=== PATIENT | male | born 1930 | race Caucasian/White ===

== ENCOUNTER 2019-05-28 08:56 | Observation (INO) ==
--- NOTE | 2019-05-28 08:58 | Emergency Department Note ---
ED Disposition Clinical Impression: Urinary tract infection, Generalized weakness, Hypotension Disposition: Admitted as Observation Condition on Discharge: Fair Time of Disposition: 12:07 - Critical Care Critical Care Time: No Attestation: On , the high probability of a clinically significant, sudden or life threatening deterioration of the following system(s) required my full and direct attention, intervention and personal management. The time I documented below is in addition to time spent performing reported procedures but includes the following listed in this critical care notation. Medical Decision Making - Medical Records Medical records reviewed: Yes: I reviewed the patient's medical records. - Omar Inquiry Pt receiving controlled substance: No Omra was queried for this patient: No Vital Signs: 05/28/19 08:38 05/28/19 10:16 05/28/19 10:59 Temperature 98.8 F Temperature Source Oral Pulse Rate [Radial] 59 L 53 L 48 L Respiratory Rate 20 Blood Pressure [Right Arm] 81/45 L 109/59 L 107/54 L Blood Pressure Mean [Right Arm] 57 75 71 Blood Pressure Source [Right Arm] Automatic Cuff Automatic Cuff Automatic Cuff Blood Pressure Position [Right Arm] Supine Sitting Supine 02 Sat by Pulse Oximetry 92 L 95 95 Oxygen Delivery Method Room Air Room Air Room Air - Lab Data Lab results reviewed: Yes: I reviewed the patient's lab results. Lab Results 05/28/19 08:30: WBC 13.8 H, RBC 4.51 L, Hgb 12.8 L, Hct 42.0, MCV 93.0, MCH 28.3, MCHC 30.5 L, RDW 14.2, Plt Count 223, MPV 8.5, Neut % (Auto) 84.6 H, Lymph % (Auto) 10.1, [place] % (Auto) 4.6, Eos % (Auto) 0.3, Baso % (Auto) 0.3, Neut # (Auto) 11.7 H, Lymph # (Auto) 1.4, [place] # (Auto) 0.6, Eos # (Auto) 0.1, Baso # (Auto) 0.0 05/28/19 08:30: Sodium 145, Potassium 4.2, Chloride 110 H, Carbon Dioxide 26, A nion Gap 13.2, BUN 24 H, Creatinine 1.62 H, Estimated Creat Clear 37, Estimated GFR 41 L, Est GFR ( Amer) 49 L, Glucose 110 H, Calcium 8.3 L, Total Bilirubin 1.0, AST 19, ALT 21, Alkaline Phosphatase 101, C-Reactive Protein 3.6 H, Total Protein 6.4, Albumin 2.8 L, Globulin 3.6 H, Albumin/Globulin Ratio 0.8 L 05/28/19 08:30: Lactate 2.5 H 05/28/19 08:30: PT 17.1 H, INR 1.69 H 05/28/19 10:10: Urine Color Yellow, Urine Appearance Clear, Urine pH 6.0, Ur Specific [place] 1.015, Urine Protein Trace, Urine Glucose (UA) Negative, Urine Ketones Negative, Urine Blood 1+, Urine Nitrate Negative, Urine Bilirubin Negative, Urine Urobilinogen 1.0, Ur Leukocyte Esterase 3+ A, Urine RBC 5-10, Urine WBC 20-50, Ur Squamous Epith Cells Occasional, Urine Bacteria 2+ Result diagrams: 05/28/19 08:30 05/28/19 08:30 Orders (Tests/Meds): ED MEDICATIONS Generic Name Dose Route Start Last Admin Trade Name Freq PRN Reason Stop Dose Admin Ceftriaxone Sodium 2 gm/ 100 mls @ 200 mls/hr 05/28/19 11:00 05/28/19 11:12 Sodium Chloride IV 06/11/19 10:59 200 mls/hr Q24H RIAZ Administration Protocol Discontinued Medications Generic Name Dose Route Start Last Admin Trade Name Freq PRN Reason Stop Dose Admin Sodium Chloride 1,000 mls @ 999 mls/hr 05/28/19 09:30 05/28/19 09:35 Sod Chlor 0.9% 1000ml Bag IV 05/28/19 10:30 999 mls/hr .Q1H1M RIAZ Administration ORDERS Category Date Time Status Blood Culture Stat Micro 05/28/19 08:30 Received Urine Culture Stat Micro 05/28/19 10:10 Received - Physician Consults Physician Consulted: isaiah Time: 12:06 Reason -: Admission Weakness HPI - General Chief complaint: Weakness Stated complaint: weakness Time Seen by Provider: 05/28/19 08:55 Mode of Arrival: EMS Source of Information: EMS Limitations: Physical Limitations Description of Symptoms (Recalled from ER Triage Doc. by RN): Nurse at [place] states that the patient has a change in his level of conciousness, low grade temp, and generalized weakness. - History of Present Illness HPI Narrative: decreased level of consciousness, low grade fever... less verbal and activity. - Related Data Home Medications Medication Instructions Recorded Confirmed Allopurinol [Allopurinol 100mg 100 mg PO DAILY 09/18/17 11/18/18 tablet] Donepezil HCl [Aricept] 10 mg PO HS 09/18/17 11/18/18 Memantine HCl [Memantine 10mg 10 mg PO BID 09/18/17 11/18/18 Tablet] Acetaminophen [Tylenol 500mg 500 mg PO Q4HP PRN 09/19/17 11/18/18 tablet] Cholecalciferol (Vitamin D3) 2,000 units PO DAILY 09/19/17 11/18/18 [Vitamin D3 1,000 Unit Tab] Cyanocobalamin (Vitamin B-12) 1,000 mcg PO DAILY 09/19/17 11/18/18 [B-12] Lutein 10 mg PO DAILY 09/19/17 11/18/18 Mag Carb/Aluminum Hydrox/Algin 30 ml PO Q6HP PRN 09/19/17 11/18/18 [Gaviscon Extra Strength Liquid] Sennosides/Docusate Sodium 8.6 - 50 mg PO DAILY 09/19/17 11/18/18 [Senna-S Tablet] Doxazosin Mesylate [Doxazosin 1mg 1 mg PO . 11/12/18 11/18/18 Tab] Ipratropium/Albuterol Sulfate 3 ml IH . 11/12/18 11/18/18 [Duoneb 3mL neb] Potassium Chloride [Pot Chlor 10 20 meq PO DAILY 11/12/18 11/18/18 mEq Tab] Sucralfate [Sucralfate 1gm 1 gm PO BID 11/12/18 11/18/18 Tab] Warfarin Sodium 6 mg PO DAILY 11/12/18 11/18/18 Allergies Allergy/AdvReac Type Severity Reaction Status Date / Time aspirin Allergy Severe SOA Verified 11/18/18 13:53 [facility] History - Hepatitis A Screen Drug use history?: No High risk sexual behaviors?: No History of sexually transmitted infection?: No Currently employed?: No Childcare worker?: No Do you have indoor plumbing?: Yes Do you have electricity?: Yes Attestation statement:: This patient has been screened for Hepatitis A risk factors. I have reviewed the patient's past medical history: Yes Medical History: Reports:: Coronary Artery Disease, Deep Vein Thrombosis, Dementia, Myocardial Infarction, Pulmonary Embolism Denies:: Cancer, Diabetes Mellitus Type 1, Diabetes Mellitus Type 2, MRSA Other Medical History: Reports: Cataracts Other Surgeries: Yes: No Previous Surgery, Other Amputation: No Fractures: No Comment: cholecystectomy, breast nodule removed, C-scope x 2, Right hand pinched nerve - Social History Educational Level: Completed High School Smoking Status: Former smoker Tobacco Type: smokeless tobacco Alcohol Intake: never Occupational Status: retired Housing: senior living Household Members: other Family Hx:: Cancer, Diabetes, Heart Attack, Hypertension, Stroke ROS Obtained: Yes All systems reviewed & no additional complaints - Constitutional Constitutional: Reports chills, Reports fever(s) - Cardiovascular Cardiovascular: Denies dyspnea - Respiratory Respiratory: No chest congestion, No cough, No dyspnea - Gastrointestinal Gastrointestingal: Denies: abdominal pain - Genitourinary Female Genitourinary: Denies hematuria - Musculoskeletal Musculoskeletal: Denies joint stiffness, Denies joint swelling, Reports muscle weakness - Integumentary/Breasts Skin/Breast: Denies rash, Denies skin pain - Neurologic Neurologic: Denies seizure-like activity, Denies syncope, Reports weakness - Hematologic/Lymphatic Henatologic/Lymphatic: Denies easy bleeding Physical Exam - General General appearance: alert, in no apparent distress, other (non-verbal, no apparent pain) - Head Head exam: atraumatic, normocephalic, normal inspection - Eye Eye exam: Present: normal appearance, PERRL, EOMI - ENT ENT exam: Present: normal exam, normal oropharynx, mucous membranes moist, TM's normal bilaterally, normal external ear exam - Neck Neck exam: Absent: meningismus - Respiratory Respiratory exam: Present: normal lung sounds bilaterally. Absent: respiratory distress - Cardiovascular Cardiovascular exam: Present: regular rate, normal rhythm. Absent: JVD - Abdominal Exam Abdominal exam: Present: soft. Absent: distention, tenderness, guarding - Extremities Exam Extremities exam: Present: other (contracted somewhat) - Neurological Exam Neurological exam: Present: alert, oriented X3 - Skin Skin exam: Present: warm, dry, intact, normal color
[2019-05-28 09:23] LABS: Basophils % 0.3 % (0.1-2.0); Eosinophils # 0.1 K/mm3 (0.0-0.4); Eosinophils % 0.3 % (0.1-12.0); Hemoglobin 12.8 g/dL (14.1-18.0); Lymphocytes # 1.4 K/mm3 (0.7-4.5); Lymphocytes % 10.1 % (10-50); Mean Corpuscular HGB Conc 30.5 g/dL (31.8-35.4); Mean Platelet Volume 8.5 fl (7.4-10.4); Monocytes # 0.6 K/mm3 (0.1-1.0); Monocytes % 4.6 % (1.7-9.3); Neutrophils # 11.7 K/mm3 (1.8-7.8); Neutrophils % 84.6 % (37.0-80.0); Platelet Count 223 K/mm3 (142-424); Red Blood Count 4.51 M/mm3 (4.60-6.20); Red Cell Distribution Width 14.2 % (11.5-17.5); White Blood Count 13.8 K/mm3 (4.8-10.8)
[2019-05-28 09:26] LABS: INR 1.69 (0.9-1.1); Prothrombin Time 17.1 seconds (9.4-11.8)
[2019-05-28 10:15] LABS: Albumin Level 2.8 gm/dL (3.4-5.0); Albumin/Globulin Ratio 0.8 (1.1-1.8); Anion Gap 13.2 mEq/L (5-15); C-Reactive Protein 3.6 mg/dL (0.0-0.9); Calcium 8.3 mg/dL (8.5-10.1); Globulin 3.6 gm/dl (1.3-3.2); Total Protein,Serum 6.4 gm/dL (6.4-8.2)
[2019-05-28 10:16] LABS: Microscopic, Urine URINE MICROSCOPIC (MICROSCOPIC)
[2019-05-28 10:19] LABS: Appearance,Urine CLEAR (Clear); Blood, Urine 1+ (Negative); Color,Urine YELLOW (Yellow); Glucose,Urine (UA) Negative (Negative); Ketones,Urine Negative (Negative); Leukocyte Esterase,Urine 3+ (Negative); Protein,Urine TRACE (Negative); Specific Gravity, Urine 1.015 (1.005-1.030)
[2019-05-28 10:27] LABS: Bilirubin,Urine Negative (Negative)
[2019-05-28 10:40] LABS: Bacteria,Urine 2+ /lpf; Squamous Epithelial Cell,Urine Occasional #/hpf (0-5); WBC,Urine 20-50 #/hpf (0-3)
--- NOTE | 2019-05-28 12:36 | History & Physical Report ---
*Admission Date: 05/28/19 *Chief complaint: AMS, weakness *History of present illness: Mr. Yusuf is an 88-year-old male with a history of hypertension, dementia, history of PE and DVT, BPH, and coronary artery disease who began feeling poorly this morning according to his nurse Brick Halfway. She states he was lethargic and confused and was running a low-grade fever. His condition did not improve, therefore he was transported to the emergency room for evaluation. Once in the ER he was found to have a urinary tract infection. He will be admitted for IV antibiotics. [facility] History I have reviewed the patient's past medical history: Yes Medical History: Reports:: BPH, Coronary Artery Disease, Deep Vein Thrombosis, Dementia, Hypertension, Myocardial Infarction, Pulmonary Embolism Denies:: Cancer, Diabetes Mellitus Type 1, Diabetes Mellitus Type 2, MRSA *Have you ever received a pneumonia vaccine?: Yes *Have you received a flu vaccine this season?: Yes Other Medical History: Reports: Cataracts Laterality Cases: Bilateral: Cataract Other Surgeries: Yes: Cholecystectomy, Colonoscopy, Other (Breast nodule removed) Amputation: No Fractures: No - *Social History Educational Level: Completed High School Smoking Status: Former smoker Tobacco Type: smokeless tobacco Alcohol Intake: never *Occupational Status:: retired Housing: detention Household Members: other *Travel in the last 8 weeks: None Family Hx:: Cancer, Diabetes, Heart Attack, Hypertension, Stroke Review of Systems - Review of Systems Review of systems:: unable to obtain (Patient is very lethargic) - *Neurologic Reports weakness, Denies seizure-like activity, Denies fainting Meds Home Medications Medication Instructions Recorded Confirmed Type Allopurinol [Allopurinol 100mg 100 mg PO DAILY 09/18/17 05/28/19 History tablet] Donepezil HCl [Aricept] 10 mg PO HS 09/18/17 05/28/19 History Memantine HCl [Memantine 10mg 10 mg PO BID 09/18/17 05/28/19 History Tablet] Acetaminophen [Tylenol 500mg 500 mg PO Q4HP PRN 09/19/17 05/28/19 History tablet] Cholecalciferol (Vitamin D3) 2,000 units PO DAILY 09/19/17 05/28/19 History [Vitamin D3 1,000 Unit Tab] Sennosides/Docusate Sodium 8.6 - 50 mg PO DAILY 09/19/17 05/28/19 History [Senna-S Tablet] Doxazosin Mesylate [Doxazosin 1mg 1 mg PO . 11/12/18 05/28/19 History Tab] Potassium Chloride [Pot Chlor 10 20 meq PO DAILY 11/12/18 05/28/19 History mEq Tab] Sucralfate [Sucralfate 1gm 1 gm PO BID 11/12/18 05/28/19 History Tab] Warfarin Sodium 6 mg PO DAILY 11/12/18 05/28/19 History Allergies Allergy/AdvReac Type Severity Reaction Status Date / Time aspirin Allergy Severe SOA Verified 11/18/18 13:53 Exam Vital signs and Labs for Last 24 Hours: Temp Pulse Resp BP Pulse Ox 98.8 F 48 L 20 107/54 L 95 05/28/19 08:38 05/28/19 10:59 05/28/19 08:38 05/28/19 10:59 05/28/19 10:59 Laboratory Results - last 24 hr 05/28/19 08:30: WBC 13.8 H, RBC 4.51 L, Hgb 12.8 L, Hct 42.0, MCV 93.0, MCH 28.3, MCHC 30.5 L, RDW 14.2, Plt Count 223, MPV 8.5, Neut % (Auto) 84.6 H, Lymph % (Auto) 10.1, [place] % (Auto) 4.6, Eos % (Auto) 0.3, Baso % (Auto) 0.3, Neut # (Auto) 11.7 H, Lymph # (Auto) 1.4, [place] # (Auto) 0.6, Eos # (Auto) 0.1, Baso # (Auto) 0.0 05/28/19 08:30: Sodium 145, Potassium 4.2, Chloride 110 H, Carbon Dioxide 26, Anion Gap 13.2, BUN 24 H, Creatinine 1.62 H, Estimated Creat Clear 37, Estimated GFR 41 L, Est GFR ( Amer) 49 L, Glucose 110 H, Calcium 8.3 L, Total Bilirubin 1.0, AST 19, ALT 21, Alkaline Phosphatase 101, C-Reactive Protein 3.6 H, Total Protein 6.4, Albumin 2.8 L, Globulin 3.6 H, Albumin/Globulin Ratio 0.8 L 05/28/19 08:30: Lactate 2.5 H 05/28/19 08:30: PT 17.1 H, INR 1.69 H 05/28/19 10:10: Urine Color Yellow, Urine Appearance Clear, Urine pH 6.0, Ur Specific [place] 1.015, Urine Protein Trace, Urine Glucose (UA) Negative, Urine Ketones Negative, Urine Blood 1+, Urine Nitrate Negative, Urine Bilirubin Negative, Urine Urobilinogen 1.0, Ur Leukocyte Esterase 3+ A, Urine RBC 5-10, Urine WBC 20-50, Ur Squamous Epith Cells Occasional, Urine Bacteria 2+ I & O for Last 24 hours: Intake & Output 05/26/19 05/27/19 05/28/19 05/29/19 11:59 11:59 11:59 11:59 Weight 178 lb - Constitutional Comments: Lethargic, can answer some questions but is very confused and falls asleep - *Routine HEENT Exam Head: Present: normocephalic Eye: Present: EOMI, PERRL ENT: Present: mucous membranes dry - *Routine Neck Exam Present: supple. Absent: lymphadenopathy - *Routine Respiratory Exam Present: CTA bilaterally - *Routine Cardiovascular Exam Present: RRR - *Routine Abdominal Exam Present: soft, normoactive bowel sounds, tenderness (lower abdomen) - *Routine Extremities Exam Absent: cyanosis, clubbing, edema - *Routine Skin Exam Present: warm. Absent: rash - *Routine Neurological Exam Present: altered mental status H&P: Result - Impressions CXR - Borderline cardiomegaly, minimal bilateral basilar atelectasis Head CT Stable findings of moderate cortical and mild cerebellar atrophy, mild and likely chronic inflammatory changes of the ethmoid sinuses Assessment and Plan (1) Urinary tract infection Current visit: Yes Status: Acute Category: Medical Code(s): N39.0 - Urinary tract infection, site not specified (2) Hypotension Current visit: Yes Status: Acute Category: Medical Code(s): I95.9 - Hypotension, unspecified (3) Weakness Current visit: Yes Status: Acute Category: Medical Code(s): R53.1 - Weakness (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 Current visit: No Status: Chronic Category: Medical Code(s): Z79.01 - FPC (current) use of anticoagulants (5) Parkinson disease Current visit: No Status: Chronic Category: Medical Code(s): G20 - Parkinson's disease (6) Subtherapeutic anticoagulation Current visit: No Status: Chronic Category: Medical Code(s): Z51.81 - Encounter for therapeutic drug level monitoring; Z79.01 - FPC (current) use of anticoagulants (7) BPH (benign prostatic hyperplasia) Current visit: No Status: Chronic Category: Medical Code(s): N40.0 - Benign prostatic hyperplasia without lower urinary tract symptoms (8) CAD (coronary artery disease) Current visit: No Status: Chronic Category: Medical Code(s): I25.10 - Atherosclerotic heart disease of [place] coronary artery without angina pectoris (9) Dementia Current visit: No Status: Chronic Category: Medical Code(s): F03.90 - Unspecified dementia without behavioral disturbance (10) History of DVT (deep vein thrombosis) Current visit: No Status: Chronic Category: Medical Code(s): Z86.718 - Personal history of other venous thrombosis and embolism (11) History of pulmonary embolism Current visit: No Status: Chronic Category: Medical Code(s): Z86.711 - Personal history of pulmonary embolism (12) Hypertension Current visit: No Status: Chronic Category: Medical Code(s): I10 - Essential (primary) hypertension - Assessment and plan all Dx Assessment and Plan for all problems:: Patient is still in the emergency room. He will be admitted and started on IV antibiotics as well as IV fluids.
--- NOTE | 2019-05-28 13:14 | Pharmacy Consult Notes ---
[facility] Pharmacy VTE Monitoring - Patient Demographics Admission date: 05/28/19 Report Date: 05/28/19 Time: 13:14 Allergies/Adverse Reactions: Patient Allergies aspirin Allergy (Severe, Verified 11/18/18 13:53) SOA Height: 1.73 m Weight: 80.739 kg Patient Problems: Current Active Problems Urinary tract infection (Acute) Weakness (Acute) Hypotension (Acute) - VTE Risk Labs: VTE Related Lab Results Hgb 12.8 g/dL (14.1-18.0) L 05/28/19 08:30 Hct 42.0 % (42.0-52.0) 05/28/19 08:30 Plt Count 223 K/mm3 (142-424) 05/28/19 08:30 PT 17.1 seconds (9.4-11.8) H 05/28/19 08:30 INR 1.69 (0.9-1.1) H 05/28/19 08:30 BUN 24 mg/dL (7-18) H 05/28/19 08:30 Creatinine 1.62 mg/dL (0.70-1.30) H 05/28/19 08:30 Estimated Creat Clear 37 mL/min (50-200) 05/28/19 08:30 - Prophylaxis VTE Prophylaxis Ordered?: Yes Types of VTE Prophylaxis: TEDS Knee High Location of Applied Device: Bilateral Lower Extremeties - VTE Diagnosis Confirmed Treatment or plan recommended: Continue Current Treatment
[2019-05-29 06:19] LABS: Anion Gap 11.7 mEq/L (5-15); Calcium 8.1 mg/dL (8.5-10.1)
[2019-05-29 06:27] LABS: Basophils % 0.4 % (0.1-2.0); Eosinophils # 0.6 K/mm3 (0.0-0.4); Eosinophils % 8.1 % (0.1-12.0); Hematocrit 37.2 % (42.0-52.0); Lymphocytes # 1.1 K/mm3 (0.7-4.5); Lymphocytes % 16.1 % (10-50); Mean Corpuscular HGB Conc 30.7 g/dL (31.8-35.4); Mean Corpuscular Volume 95.2 fl (80-94); Mean Platelet Volume 8.3 fl (7.4-10.4); Monocytes # 0.3 K/mm3 (0.1-1.0); Monocytes % 4.6 % (1.7-9.3); Neutrophils % 70.8 % (37.0-80.0); Platelet Count 179 K/mm3 (142-424); Red Blood Count 3.91 M/mm3 (4.60-6.20); Red Cell Distribution Width 14.3 % (11.5-17.5); White Blood Count 7.1 K/mm3 (4.8-10.8)
[2019-05-29 07:06] LABS: Hemoglobin 11.3 g/dL (14.1-18.0)
--- NOTE | 2019-05-29 08:58 | Progress Note ---
Internal Medicine - PN: Subj *Date: 05/29/19 *Time: 11:00 Interval history: Patient doing better compared to yesterday. Exam Vital signs and Labs for Last 24 Hours: Temp Pulse Resp BP Pulse Ox 98.0 F 60 17 128/70 93 L 05/29/19 08:00 05/29/19 08:00 05/29/19 08:00 05/29/19 08:00 05/29/19 08:00 Laboratory Results - last 24 hr 05/28/19 08:30: WBC 13.8 H, RBC 4.51 L, Hgb 12.8 L, Hct 42.0, MCV 93.0, MCH 28.3, MCHC 30.5 L, RDW 14.2, Plt Count 223, MPV 8.5, Neut % (Auto) 84.6 H, Lymph % (Auto) 10.1, [place] % (Auto) 4.6, Eos % (Auto) 0.3, Baso % (Auto) 0.3, Neut # (Auto) 11.7 H, Lymph # (Auto) 1.4, [place] # (Auto) 0.6, Eos # (Auto) 0.1, Baso # (Auto) 0.0 05/28/19 08:30: Sodium 145, Potassium 4.2, Chloride 110 H, Carbon Dioxide 26, Anion Gap 13.2, BUN 24 H, Creatinine 1.62 H, Estimated Creat Clear 37, Estimated GFR 41 L, Est GFR ( Amer) 49 L, Glucose 110 H, Calcium 8.3 L, Total Bilirubin 1.0, AST 19, ALT 21, Alkaline Phosphatase 101, C-Reactive Protein 3.6 H, Total Protein 6.4, Albumin 2.8 L, Globulin 3.6 H, Albumin/Globulin Ratio 0.8 L 05/28/19 08:30: Lactate 2.5 H 05/28/19 08:30: PT 17.1 H, INR 1.69 H 05/28/19 10:10: Urine Color Yellow, Urine Appearance Clear, Urine pH 6.0, Ur Specific [place] 1.015, Urine Protein Trace, Urine Glucose (UA) Negative, Urine Ketones Negative, Urine Blood 1+, Urine Nitrate Negative, Urine Bilirubin Negati ve, Urine Urobilinogen 1.0, Ur Leukocyte Esterase 3+ A, Urine RBC 5-10, Urine WBC 20-50, Ur Squamous Epith Cells Occasional, Urine Bacteria 2+ 05/28/19 13:28: Lactate 1.8 05/28/19 17:32: POC Glucose 83 05/28/19 22:13: POC Glucose 85 05/29/19 06:03: POC Glucose 73 05/29/19 06:04: WBC 7.1 D, RBC 3.91 L, Hgb 11.3 L D, Hct 37.2 L, MCV 95.2 H, MCH 29.2, MCHC 30.7 L, RDW 14.3, Plt Count 179, MPV 8.3, Neut % (Auto) 70.8, Lymph % (Auto) 16.1, [place] % (Auto) 4.6, Eos % (Auto) 8.1, Baso % (Auto) 0.4, Neut # (Auto) 5.0, Lymph # (Auto) 1.1, [place] # (Auto) 0.3, Eos # (Auto) 0.6 H, Baso # (Auto) 0.0 05/29/19 06:04: Sodium 145, Potassium 3.7, Chloride 111 H, Carbon Dioxide 26, Anion Gap 11.7, BUN 20 H, Creatinine 1.10 D, Estimated Creat Clear 53, Estimated GFR 63, Est GFR ( Amer) 77 D, Glucose 78 D, Calcium 8.1 L I & O for Last 24 hours: Intake & Output 05/26/19 05/27/19 05/28/19 05/29/19 11:59 11:59 11:59 11:59 Intake Total 2190 / 2190 Output Total 700 / 700 Balance 1490 / 1490 Weight 178 lb 171 lb 3.002 oz Microbiology Reports for the Last 24 Hours: Microbiology 05/28/19 10:10 Urine,Clean Catch Urine Culture - Preliminary Gram Negative Rods - *Routine HEENT Exam Head: Present: normocephalic Eye: Present: EOMI, PERRL ENT: Present: mucous membranes moist - *Routine Neck Exam Present: supple. Absent: lymphadenopathy - *Routine Respiratory Exam Present: CTA bilaterally - *Routine Cardiovascular Exam Present: RRR - *Routine Abdominal Exam Present: soft, normoactive bowel sounds. Absent: tenderness - *Routine Extremities Exam Absent: cyanosis, clubbing, edema - *Routine Skin Exam Present: warm. 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 (5) Parkinson disease Current visit: No Status: Chronic Category: Medical Code(s): G20 - Parkinson's disease (6) Subtherapeutic anticoagulation Current visit: No Status: Chronic Category: Medical Code(s): Z51.81 - Encounter for therapeutic drug level monitoring; Z79.01 - USP (current) use of anticoagulants (7) BPH (benign prostatic hyperplasia) Current visit: No Status: Chronic Category: Medical Code(s): N40.0 - Benign prostatic hyperplasia without lower urinary tract symptoms (8) CAD (coronary artery disease) Current visit: No Status: Chronic Category: Medical Code(s): I25.10 - Atherosclerotic heart disease of [place] coronary artery without angina pectoris (9) Dementia Current visit: No Status: Chronic Category: Medical Code(s): F03.90 - Unspecified dementia without behavioral disturbance (10) History of DVT (deep vein thrombosis) Current visit: No Status: Chronic Category: Medical Code(s): Z86.718 - Personal history of other venous thrombosis and embolism (11) History of pulmonary embolism Current visit: No Status: Chronic Category: Medical Code(s): Z86.711 - Personal history of pulmonary embolism (12) Hypertension Current visit: No Status: Chronic Category: Medical Code(s): I10 - Essential (primary) hypertension - Assessment and plan all Dx Assessment and Plan for all problems:: will discharge him back to custodial with IM rocephin 1g QD. Will await for cultures and do p.o. treatment is necessary at that time
--- NOTE | 2019-05-29 11:44 | Discharge Summary ---
General - General Admission date:: 05/28/19 Discharge date: 05/29/19 HPI HPI: Mr. Yusuf is an 88-year-old male with a history of hypertension, dementia, history of PE and DVT, BPH, and coronary artery disease who began feeling poorly this morning according to his nurse Warwick Halfway. She states he was lethargic and confused and was running a low-grade fever. His condition did not improve, therefore he was transported to the emergency room for evaluation. Once in the ER he was found to have a urinary tract infection. He will be admitted for IV antibiotics. Hospital Course Hospital Course: Patient was admitted to our hospital and was started on IV Rocephin for his UTI. His urine cultures grew gram-negative rods so far pending sensitivity. Upon the day of discharge being medically stable, patient was sent back to the senior care, [facility], with IM Rocephin pending cultures sensitivity. Follow cultures and change to p.o. when and if medically necessary at that point. Objective Vital signs: Temp Pulse Resp BP Pulse Ox 98.0 F 60 17 128/70 93 L 05/29/19 08:00 05/29/19 08:00 05/29/19 08:00 05/29/19 08:00 05/29/19 08:00 - *Routine HEENT Exam Head: Present: normocephalic Eye: Present: EOMI, PERRL ENT: Present: mucous membranes moist - *Routine Neck Exam Present: supple, full ROM - Routine Chest/Breast/Axilla Exam Chest wall: Absent: tenderness - *Routine Respiratory Exam Present: CTA bilaterally. Absent: accessory muscle use - *Routine Cardiovascular Exam Present: RRR - *Routine Abdominal Exam Present: soft, normoactive bowel sounds. Absent: tenderness - *Routine Extremities Exam Absent: cyanosis, clubbing, edema - *Routine Skin Exam Present: intact - *Routine Neurological Exam Present: alert - Detailed Eye Exam Eyelids: Left normal inspection Results Labs on day of discharge: Labs from last 24 hours 05/29/19 05/29/19 05/29/19 06:04 06:04 06:03 WBC 7.1 D RBC 3.91 L Hgb 11.3 L D Hct 37.2 L MCV 95.2 H MCH 29.2 MCHC 30.7 L RDW 14.3 Plt Count 179 MPV 8.3 Neut % (Auto) 70.8 Lymph % (Auto) 16.1 [place] % (Auto) 4.6 Eos % (Auto) 8.1 Baso % (Auto) 0.4 Neut # (Auto) 5.0 Lymph # (Auto) 1.1 [place] # (Auto) 0.3 Eos # (Auto) 0.6 H Baso # (Auto) 0.0 Sodium 145 Potassium 3.7 Chloride 111 H Carbon Dioxide 26 Anion Gap 11.7 BUN 20 H Creatinine 1.10 D Estimated Creat Clear 53 Estimated GFR 63 Est GFR ( Amer) 77 D Glucose 78 D POC Glucose 73 Lactate Calcium 8.1 L Urine Color Urine Appearance Urine pH Ur Specific [place] Urine Protein Urine Glucose (UA) Urine Ketones Urine Blood Urine Nitrate Urine Bilirubin Urine Urobilinogen Ur Leukocyte Esterase Urine RBC Urine WBC Ur Squamous Epith Cells Urine Bacteria 05/28/19 05/28/19 05/28/19 22:13 17:32 13:28 WBC RBC Hgb Hct MCV MCH MCHC RDW Plt Count MPV Neut % (Auto) Lymph % (Auto) [place] % (Auto) Eos % (Auto) Baso % (Auto) Neut # (Auto) Lymph # (Auto) [place] # (Auto) Eos # (Auto) Baso # (Auto) Sodium Potassium Chloride Carbon Dioxide Anion Gap BUN Creatinine Estimated Creat Clear Estimated GFR Est GFR ( Amer) Glucose POC Glucose 85 83 Lactate 1.8 Calcium Urine Color Urine Appearance Urine pH Ur Specific [place] Urine Protein Urine Glucose (UA) Urine Ketones Urine Blood Urine Nitrate Urine Bilirubin Urine Urobilinogen Ur Leukocyte Esterase Urine RBC Urine WBC Ur Squamous Epith Cells Urine Bacteria 05/28/19 10:10 WBC RBC Hgb Hct MCV MCH MCHC RDW Plt Count MPV Neut % (Auto) Lymph % (Auto) [place] % (Auto) Eos % (Auto) Baso % (Auto) Neut # (Auto) Lymph # (Auto) [place] # (Auto) Eos # (Auto) Baso # (Auto) Sodium Potassium Chloride Carbon Dioxide Anion Gap BUN Creatinine Estimated Creat Clear Estimated GFR Est GFR ( Amer) Glucose POC Glucose Lactate Calcium Urine Color Yellow Urine Appearance Clear Urine pH 6.0 Ur Specific [place] 1.015 Urine Protein Trace Urine Glucose (UA) Negative Urine Ketones Negative Urine Blood 1+ Urine Nitrate Negative Urine Bilirubin Negative Urine Urobilinogen 1.0 Ur Leukocyte Esterase 3+ A Urine RBC 5-10 Urine WBC 20-50 Ur Squamous Epith Cells Occasional Urine Bacteria 2+ Preliminary micro results at discharge 05/28/19 10:10 Urine Culture - Preliminary Urine,Clean Catch Gram Negative Rods DS: Diagnosis - Discharge Diagnosis (1) Urinary tract infection Status: Acute (2) Hypotension Status: Acute (3) Weakness Status: Acute (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 (5) Parkinson disease Status: Chronic (6) Subtherapeutic anticoagulation Status: Chronic (7) BPH (benign prostatic hyperplasia) Status: Chronic (8) CAD (coronary artery disease) Status: Chronic (9) Dementia Status: Chronic (10) History of DVT (deep vein thrombosis) Status: Chronic (11) History of pulmonary embolism Status: Chronic (12) Hypertension Status: Chronic Discharge Plan - Patient Discharge Instructions ACTIVITY: Continue current activity DIET: continue same diet Patient Instructions: DI for Urinary Tract Infection (UTI) - Follow up Plan Follow up with: Tiffany Marcano MD [Staff Physician] - (will follow at facility) Disposition: [facility] Home Medications: Home Medications Medication Instructions Recorded Confirmed Type Allopurinol [Allopurinol 100mg 100 mg PO DAILY 09/18/17 05/28/19 History tablet] Memantine HCl [Memantine 10mg 10 mg PO BID 09/18/17 05/28/19 History Tablet] Acetaminophen [Tylenol 500mg 500 mg PO Q4HP PRN 09/19/17 05/28/19 History tablet] Cholecalciferol (Vitamin D3) 2,000 units PO DAILY 09/19/17 05/28/19 History [Vitamin D3 1,000 Unit Tab] Doxazosin Mesylate [Doxazosin 1mg 1 mg PO HS 11/12/18 05/28/19 History Tab] Potassium Chloride [Pot Chlor 10 20 meq PO DAILY 11/12/18 05/28/19 History mEq Tab] Sucralfate [Sucralfate 1gm 1 gm PO ACHS 11/12/18 05/28/19 History Tab] Warfarin Sodium 6 mg PO SUMOWETHFRSA 11/12/18 05/28/19 History Bisacodyl [Dulcolax 10mg Supp] 10 mg RC DAILYP PRN 05/28/19 05/28/19 History Cyanocobalamin (Vitamin B-12) 1,000 mcg PO DAILY 05/28/19 05/28/19 History [Vitamin B-12 1000mcg Tablet] Donepezil HCl [Aricept 10mg 10 mg PO HS 05/28/19 05/28/19 History tablet] Ipratropium/Albuterol Sulfate 3 ml IH Q2HP PRN 05/28/19 05/28/19 History [Duoneb 3mL neb] Lutein 10 mg PO DAILY 05/28/19 05/28/19 History Mag Carb/Aluminum Hydrox/Algin 30 ml PO Q6HP PRN 05/28/19 05/28/19 History [Acid Gone Antacid Liquid] Polyethylene Glycol 3350 [Miralax 17 gm PO DAILY 05/28/19 05/28/19 History 17gm Packet] Sennosides/Docusate Sodium [Senna 1 each PO DAILY 05/28/19 05/28/19 History Plus 8.6-50 mg Tablet] Warfarin Sodium 2 mg PO TU 05/28/19 05/28/19 History Warfarin Sodium 5 mg PO TU 05/28/19 05/28/19 History guaiFENesin [Guaifenesin] 400 mg PO TID 05/28/19 05/28/19 History Ceftriaxone Sodium [Rocephin 1gm 1 gm IM DAILY 6 Days #6 vial 05/29/19 Rx vial] Prescriptions/Medication Reconciliation: New Ceftriaxone Sodium [Rocephin 1gm vial] 1 gm IM DAILY 6 Days #6 vial Continued Memantine HCl [Memantine 10mg Tablet] 10 mg PO BID Cholecalciferol (Vitamin D3) [Vitamin D3 1,000 Unit Tab] 2,000 units PO DAILY Acetaminophen [Tylenol 500mg tablet] 500 mg PO Q4HP PRN PRN Reason: PAIN/FEVER Sucralfate [Sucralfate 1gm Tab] 1 gm PO ACHS Potassium Chloride [Pot Chlor 10 mEq Tab] 20 meq PO DAILY Warfarin Sodium 6 mg PO SUMOWETHFRSA Bisacodyl [Dulcolax 10mg Supp] 10 mg RC DAILYP PRN PRN Reason: Constipation Ipratropium/Albuterol Sulfate [Duoneb 3mL neb] 3 ml IH Q2HP PRN PRN Reason: SOA Mag Carb/Aluminum Hydrox/Algin [Acid Gone Antacid Liquid] 30 ml PO Q6HP PRN PRN Reason: Indigestion Donepezil HCl [Aricept 10mg tablet] 10 mg PO HS guaiFENesin [Guaifenesin] 400 mg PO TID Polyethylene Glycol 3350 [Miralax 17gm Packet] 17 gm PO DAILY Warfarin Sodium 2 mg PO TU Warfarin Sodium 5 mg PO TU Allopurinol [Allopurinol 100mg tablet] 100 mg PO DAILY Doxazosin Mesylate [Doxazosin 1mg Tab] 1 mg PO HS Lutein 10 mg PO DAILY Sennosides/Docusate Sodium [Senna Plus 8.6-50 mg Tablet] 1 each PO DAILY Cyanocobalamin (Vitamin B-12) [Vitamin B-12 1000mcg Tablet] 1,000 mcg PO DAILY - Problem Reconciliation Problems Reviewed?: Yes
--- NOTE | 2019-05-31 17:31 | Electrocardiograph Report ---
APPROVED REPORT Exam: Resting ECG HR:41 bpm ECG Measurements Heart Rate 41 AXES TX 178 P 62 QRSd 106 QRS -24 QT 496 T32 QTc 409 <Conclusion> Marked sinus bradycardia with sinus arrhythmia Low voltage QRS Abnormal ECG Electronically signed by : Lang Dunham, 05/31/2019 17:31:33
== END 2019-05-29 13:45 ==
LOC: 2ND 08:56 → ER 08:56 → 2ND 13:00
PROVIDERS: ADMIT Family Medicine; ATTEND Family Medicine
CPT/HCPCS: 36415; 70450; 71010; 71045; 80048; 80053; 81001; 82962; 83605; 85025; 85610; 86140; 87040; 87086; 87088; 87186; 93005; 96365; 96367; 99285; G0378